=== PATIENT | male | born 1945 | race Caucasian/White ===

== ENCOUNTER 2016-11-28 06:52 | Inpatient (IN) | payer MEDICARE, MEDICAID ==
[~2016-11-28] VITALS: Ht 165.1 cm; Wt 44.3 kg
--- NOTE | ~2016-11-28 | PR ---
[place], [place] PROGRESS NOTE NAME: KATHYA MARTINEZ [facility] #: [id number] UNIT #: [id number] ROOM: 404 DOCTOR: SUDHAKAR TRIMBLE MD,MARGA BIRTHDATE: [birth year] DOS: 12/02/2016 PULMONARY FOLLOWUP SUBJECTIVE: He has been noted n.p.o. past midnight. Bronchoscopy planned to be done today. The patient denies symptoms of chest pain. He has been noted mild cough, but there was no sputum expectoration. Denies any abdominal pain. OBJECTIVE: VITAL SIGNS: Recorded showed normal temperature, respiratory rate of 20, heart rate of 72, blood pressure 117/53, pulse oxygen saturation recorded on room air as 98% saturation. HEENT: Shows no acute change. NECK: Supple. CARDIOVASCULAR: S1, S2 audible. LUNGS: Decreased breaths in the left lung. Remaining lung were clear. ABDOMEN: Soft, nontender. LABORATORY DATA: BMP today: BUN 6, creatinine was normal. Glucose 168. Stool for occult blood was noted as negative. IMPRESSION: 1. The patient with large endobronchial obstruction, suspected in the left upper lobe secondary to possible malignancy of the lung with bilateral pulmonary nodules. 2. Postobstructive pneumonia, which has been treated with the antibiotics as well. 3. Chronic obstructive pulmonary disease. PLAN OF TREATMENT: Proceed with the bronchoscopy as planned. No change in treatment at this time immediate will be needed. Any treatment changes necessary will be ordered after the bronchoscopy. MARGA DE LA FUENTE MD CM:PNTRANS [id number] MARGA TRIMBLE MD 12/02/16 1329 interface
--- NOTE | ~2016-11-28 | PR ---
[place], [place] PROGRESS NOTE NAME: KATHYA MARTINEZ UNIT #: [id number] ROOM: 404 DOCTOR: MARGA RIVERA MD BIRTHDATE: [birth year] DOS: 11/30/2016 SUBJECTIVE: He has been noted much comfortable at this time, chest congestion was noted without any sputum expectoration was given blood transfusion yesterday because of severe anemia. Denies symptoms of acute chest pain. Overall noted improvement in the physical stance in this patient and general weakness as per patient. OBJECTIVE: VITAL SIGNS: Normal temperature, respiratory rate 19, heart rate 69, blood pressure 113/52. The pulse oxygen saturation on room air 99% saturation recorded. HEENT: Showed no new change. NECK: Supple. CARDIOVASCULAR: S1, S2 audible. LUNGS: The patient was noted without any wheezing or crackles. Decreased breath sounds were noted in the left upper lobe. IMPRESSION: 1. Malignancy of the patient suspected with metastatic bilateral pulmonary nodules. The patient with atelectasis, left upper lobe. Overall generalized weakness and fatigue. 2. Anemia. 3. Hypokalemia. Supplementation of potassium has been done by the primary care attending. PLAN OF TREATMENT: No change in the plan of management at this time. Continue current therapy as previously in progress. Proceed with the bronchoscopy that was planned, will be done on Friday. Other supportive plan and management as well. Usual care. Nutrition support. LABORATORY DATA: BMP this morning, glucose 152, BUN and creatinine was normal. Potassium 3.2, mildly decreased. CBC: WBC count 13.4, hemoglobin 9.1, hematocrit 29.1, platelet count 385,000. [place], [place] PROGRESS NOTE NAME: KATHYA MARTINEZ UNIT #: [id number] ROOM: 404 DOCTOR: MARGA RIVERA MD BIRTHDATE: [birth year] MARGA DE LA FUENTE MD CM:PNTRANS [id number] MARGA TRIMBLE MD 12/01/16 0117 interface
--- NOTE | ~2016-11-28 | PR ---
[place], [place] PROGRESS NOTE NAME: KATHYA MARTINEZ UNIT #: [id number] ROOM: 404 DOCTOR: MARGA RIVERA MD BIRTHDATE: [birth year] DOS: 12/03/2016 PULMONARY FOLLOWUP SUBJECTIVE: The patient has been noted without any acute distress at this time. The bronchoscopy completed yesterday, endobronchial biopsy taken of the left upper lobe is a large mass. He has been noted with mild cough without any sputum expectoration. OBJECTIVE: VITAL SIGNS: The temperature yesterday noted as 102.4 degrees Fahrenheit post-bronchoscopy. The respiratory rate 18, heart rate 96, blood pressure 117/58. Pulse oxygen saturation noted on room air 93% saturation. HEENT: No acute change present. NECK: Supple. CARDIOVASCULAR: S1, S2 audible. LUNGS: Noted without any wheezing or crackles, decreased breath sounds noted in the left side of the lung. ABDOMEN: Soft, nontender. LABORATORY DATA: CBC today: WBC count 13.1, hemoglobin 9.3, hematocrit 29.7, platelet count 459,000. The BMP this morning shows BUN normal, creatinine was normal. Electrolytes were normal. Albumin 1.8. ____ culture of the bronchial washing noted normal sha. IMPRESSION: 1. The patient noted with suspected malignancy of bilateral pulmonary nodules with obstruction of the left upper lobe subsegment. 2. The patient with chronic obstructive pulmonary disease and history of chronic nicotine dependence. 3. Protein calorie malnutrition status. 4. Fever post-bronchoscopy, could be seen sometimes. PLAN OF TREATMENT: Discharge the patient on oral antibiotics if noted clinically stable. Outpatient followup will be planned post-discharge for the patient. The results of the bronchial washings and cultures will be monitored. Monitor path report, cytology, and the bronchial washings. [place], [place] PROGRESS NOTE NAME: KATHYA MARTINEZ UNIT #: [id number] ROOM: 404 DOCTOR: MARGA RIVERA MD BIRTHDATE: [birth year] MARGA DE LA FUENTE MD CM:PNTRANS [id number] MARGA TRIMBLE MD 12/03/16 1153 interface
--- NOTE | ~2016-11-28 | PR ---
[place], [place] PROGRESS NOTE NAME: KATHYA MARTINEZ UNIT #: [id number] ROOM: 404 DOCTOR: MARGA RIVERA MD BIRTHDATE: [birth year] DOS: 12/01/2016 SUBJECTIVE: He has been noted comfortable at this time. He continues to shows reduction of the origin ____ fatigue. The patient does have some cough, but there was no sputum expectoration. Denies any symptoms of acute chest pain. OBJECTIVE: VITAL SIGNS: For the patient shows the normal temperature, respiratory rate of the patient recorded as 18, heart rate 73, blood pressures 124/59. The pulse oxygen saturation of the patient noted on room air 96% saturation. HEENT: Examination shows no new change. NECK: Supple. CARDIOVASCULAR: S1, S2 audible. LUNGS: The patient was noted without any crackles. Decreased breath sounds are noted in the left lung. ABDOMEN: Soft, nontender. LABORATORY DATA: CBC today: WBC count 13.4, hemoglobin 9.1, hematocrit 29.1, platelet count 385,000. Blood culture from the 15 of this month shows no bacterial growth. Vancomycin trough level noted as 5.5. IMPRESSION: 1. The patient with left upper lung atelectasis for the patient which has been noted. 2. Endobronchial lesion for the patient bilaterally. Suspected metastatic nodules in the lungs. 3. Generalized fatigability for this patient as well. 4. Postobstructive pneumonia for the patient as well. PLAN OF TREATMENT: Continue the patient's current therapy, plan of management. Bronchoscopy planned to be done in the morning for the patient under fluoroscopy for assessment of current abnormal CT scan of chest finding and the chest x-ray. Other supportive plan of therapy to be continued. Usual care. [place], [place] PROGRESS NOTE NAME: KATHYA MARTINEZ UNIT #: [id number] ROOM: 404 DOCTOR: MARGA RIVERA MD BIRTHDATE: [birth year] MARGA DE LA FUENTE MD CM:PNTRANS 26 MARGA TRIMBLE MD 12/01/16 2226 interface
--- NOTE | ~2016-11-28 | PROC NOTE ---
[place], [place] PROCEDURE NOTE [id number] UN[facility] #: [id number] ROOM: 404 DOCTOR: SUDHAKAR TRIMBLE MD,MARGA BIRTHDATE: [birth year] DOS: 12/02/2016 PREOPERATIVE DIAGNOSIS: Left upper lung atelectasis with suspected endobronchial lesion. POSTOPERATIVE DIAGNOSIS: Large endobronchial lesion noted in the left upper lung, status post endobronchial and transbronchial biopsies. COMPLICATIONS: None. PROCEDURE DESCRIPTION: Informed consent obtained. The patient brought to the OR and placed in supine position. Conscious sedation was administered in the supine position by the Anesthesia Department. After the sedation, the patient's airway introduced into the mouth. Bronchoscope advanced to the endobronchial tree to the airway into laryngeal area. Epiglottis and vocal cords were seen. Vocal noted yellowish in color moving symmetrically with movements. Bronchoscope advanced to the vocal cord and tracheal lumen. Tracheal lumen noted small amount of secretion. All the bronchial tree of right side noted were patent. Left lingula and lower lobe bronchial opening were all noted patent. Large endobronchial obstructive lesions were noted in the left upper lung. The endobronchial and transbronchial biopsies were done with minimal bleeding. A 1:10,000 epinephrine dilutely was also lavaged at that area to prevent any bleeding. Procedure well tolerated in general. Postoperative finding will be discussed later on once the patient recovers from the effects of acute sedation. There were no immediate family members present to discuss the current findings. MARGA DE LA FUENTE MD CM:PROCNOTE:PROCEDURE NOTE 1141 1337 MARGA TRIMBLE MD
--- NOTE | ~2016-11-28 | CON ---
[place], [place] REPORT OF CONSULTATION NAME: KATHYA MARTINEZ [facility] #: [id number] UNIT #: [id number] ROOM: 404 DOCTOR: MARGA RIVERA MD BIRTHDATE: [birth year] DOS: 11/29/2016 PULMONARY CONSULTATION, EVALUATION AND MANAGEMENT REASON FOR CONSULTATION: The consultation was done for the patient for assessment of current abnormal mass lesion and atelectasis of the left lung. HISTORY OF PRESENT ILLNESS: This is a 71-year-old male patient, unknown to me. The patient was noted with symptoms of having increased shortness of breath ongoing for the past few days. The symptoms have been noted to be gradually worsening. He was also noted with edema of the right foot as well. Shortness of breath occurs with [id number] exertion activity with general weakness and fatigue. The patient was also noted with pain in the foot as well. The patient was noted with a cough. There was no sputum expectoration. Denies wheezing or chest pain. He has been assessed in the Emergency Room with a chest x-ray taken at that time, which has been noted with left upper lobe atelectasis. CT scan of the chest for this patient was done for further assessment, which was noted abnormal as well. The patient has been living in [place] previously and recently moved back to [place]. The patient lives with his daughter. REVIEW OF SYSTEMS: CONSTITUTIONAL: The patient stated he has been noted with weight loss in the past, but not noted any recent weight loss. Denies symptoms of fever or chills. Noted generalized weakness and malaise. EYES: Denies any burning, redness, or tenderness. EARS, NOSE AND THROAT: Denies sore throat, hoarseness, otalgia, postnasal drainage or epistaxis. CARDIOVASCULAR: Denies anginal pain, edema or pain of the lower extremities. GASTROINTESTINAL: Denies dysphagia, nausea, vomiting, diarrhea, abdominal pain, hematemesis, melena, or hematochezia. SKIN: Denies any lesions or rashes. MUSCULOSKELETAL: Denies any acute joint pain at this time except foot pain. CENTRAL NERVOUS SYSTEM: No dizziness, headache, diplopia, syncopal episodes or seizures. Remaining systems were reviewed with the patient, they were noted all negative. PAST MEDICAL HISTORY: Known with history of: 1. Type 2 diabetes mellitus. 2. Essential hypertension. 3. Hyperlipidemia. 4. Peripheral vascular disease. PAST SURGICAL HISTORY: Reported: 1. Amputation of the left foot toe. 2. Femoral-popliteal bypass grafting surgery for the peripheral vascular disease management. SOCIAL HISTORY: The patient is and has 2 children. Denies any history of alcohol or any illicit drug use. Smoking noted as 1 pack of cigarettes per [place], [place] REPORT OF CONSULTATION [id number] #: [id number] ROOM: [facility] DOCTOR: MARGA RIVERA MD BIRTHDATE: [birth year] day, started as a teenager with active tobacco use noted until hospitalization. FAMILY HISTORY: Father from an accident. History about the mom was unknown. MEDICATIONS: The home medications noted as use of ProAir HFA inhaler p.r.n. use, aspirin, Lipitor, Plavix, and niacin. DRUG ALLERGIES: No known drug allergies. PHYSICAL EXAMINATION: GENERAL: This is a 71-year-old male patient who has been currently noted emaciated with cachexia. Height of the patient noted as 5 feet 5 inches, weight of 44 kg, BMI 16.2. VITAL SIGNS: Normal temperature, respiratory rate noted as 16-19, heart rate of 79-75, blood pressure 113/55 to 103/68. HEENT: Examination shows head was atraumatic. Eyes: No icterus. Loss of muscle mastication. Oral mucosa was dry. NECK: Supple. CARDIOVASCULAR: S1, S2 audible. LUNGS: The patient was noted with decreased breath sounds in the left chest auscultation. There is no wheezing or crackles. ABDOMEN: Soft, flat, nontender. EXTREMITIES: No acute edema. CENTRAL NERVOUS SYSTEM: Cranial nerves 2-12 intact. No focal deficits. MUSCULOSKELETAL: No deformities. SKIN: No lesions or rashes. LABORATORY DATA: The patient's CBC that was done yesterday on admission, WBC count 13.0, hemoglobin 8.3, hematocrit 27.5, platelet count of 546,000. CBC of the patient that was done this morning shows hemoglobin 6, hematocrit 20.0, WBC count 12.6, platelet count 448,000. BMP of the patient that was done yesterday, 11/28/2016, shows glucose 138, BUN and creatinine was normal, calcium was normal, other electrolytes normal. ESR was noted at 130 yesterday. Troponins yesterday and this morning were noted as normal. Lactic acid noted as 2.6 and 2.8. CMP of the patient this morning, glucose 155, BUN and creatinine normal, potassium 3.1. Albumin of 1.9. AST and ALT were normal. Total protein of 6.1. Chest x-ray of the patient shows evidence of atelectasis, left upper lung with tracheal deviation noted to the left. CT scan of the chest that was done on 11/28/2016 with contrast that I personally reviewed with the patient shows evidence of significant lymphadenopathy noted in the precarinal area as well as the mediastinum bilaterally. Right infrahilar lymphadenopathy was also noted. The left pulmonary artery was encased with current mass lesion which is noted necrosis in that, measured as 5.1 x 4.2 x 4.1 cm in size. The patient with atelectasis of the left upper lobe. Additional multiple nodules were noted in both lungs, with different sizes, with the larger index nodule noted at 2 x 2.2 cm in size in the superior aspect of the left lower lobe. Severe centrilobular emphysema changes also noted. A low-density lesion in the left hepatic lobe was also described. [place], [place] REPORT OF CONSULTATION NAME: [facility] [id number] UNIT #: [id number] ROOM: 404 DOCTOR: SANA RIVERA MDM BIRTHDATE: [birth year] IMPRESSION: 1. The patient who has been currently admitted to the hospital noted general weakness and fatigue, noted with incidental finding of obstructive lesion, causing complete atelectasis of the left upper lung with metastatic lesion highly suspicious for primary lung cancer, metastasis to both lungs and lymph nodes would be considered very likely. 2. Low body mass index with abnormal weight loss related due to underlying malignancy would be considered. 3. Anemia has been noted, the etiology remains unclear. 4. Chronic obstructive pulmonary disease with centrilobular emphysema was also noted. 5. Possibility of postobstructive pneumonia would be considered with current abnormal findings of atelectasis of the left upper lobe ____ as well with lactic acidosis and sepsis consideration. 6. History of chronic nicotine dependence for many years. PLAN OF TREATMENT: Bronchoscopy ____ to assess the patient and planned to be done on Friday morning with fluoroscopy. Continuation of the current antibiotics. Monitor respiratory status closely. Assess the nutritional status closely and nutrition support to be provided. Order prealbumin levels as well during the current hospitalization. Use of nicotine replacement patches to overcome the nicotine withdrawal for this patient as well. Further treatment changes will be done for the patient based on the progression of the illness. The current ongoing problem was discussed with the patient in detail. He will be started on Dulera inhaler as well for the long-term management of COPD component. Thanks for allowing me to participate in the care of this patient. MARGA DE LA FUENTE MD CM:CONSTR:REPORT OF CONSULTATION 1218 11/29/16 1455 interface
--- NOTE | ~2016-11-28 | CON ---
[place], [place] REPORT OF CONSULTATION NAME: [facility]Z [id number] UNIT #: [id number] ROOM: 404 DOCTOR: HAYDEE TOMAS MDSALEMNIKOLAY BIRTHDATE: [birth year] DOS: HISTORY OF PRESENT ILLNESS: This is a 71-year-old patient who presented with chief complaint of cellulitis of the right foot and patient was admitted and panel of blood work was done and initial blood work where he was found to have microcytic anemia with H and H of 8 and 27, white blood cell of 13, basic metabolic panel addressed, electrolyte balance, C-reactive protein greater than 10. Right foot was x-rayed, moderate deformities, no acute abnormality was noted. Lactic acid was 2.6. Troponin was normal. Chest x-ray shows complete collapse of the left upper lobe with shift of mediastinal structures toward the left. CT scan was recommended. CT scan of the chest therefore yielded centrally obstructing, centrally necrotic mass occluding the left upper lobe bronchus and concerns for Pulmonary Medicine and therefore, he was scheduled for bronchoscopy and biopsy by Dr. Serrano tomorrow to rule out carcinoma. His blood cultures were negative. Latest H and H was 9 and 27. This is status post transfusion of 2 units packed cells. PAST MEDICAL HISTORY: Diabetes, hyperlipidemia, hypertension, peripheral vascular disease. PAST SURGICAL HISTORY: Amputation of left foot toe fem-pop. SOCIAL HISTORY: Smoker, nonalcohol consumer. FAMILY HISTORY: Noncontributory. ALLERGIES: To no known medications. MEDICATIONS: Medication list as identified, ProAir 9, Nyasin, Plavix, Lipitor, aspirin, all has been recognized. REVIEW OF SYSTEMS: HEENT: Denies double vision, blurred vision. RESPIRATORY: Admits to shortness of breath. CARDIOVASCULAR: Denies chest pain. DIGESTIVE SYSTEM: No hematemesis, no hematochezia. Last colonoscopy 10 years ago. PHYSICAL EXAMINATION: GENERAL: Nondistressed patient. HEENT: Head normocephalic, nontraumatic. Mouth and buccal mucosa benign. NECK: Supple, no thyromegaly, no cervical lymphadenopathy. CHEST: Symmetric anatomy, equal expansion. Decreased air entry, COPD pattern is recognized. HEART: Normal sinus rhythm, no gallop, no murmur. ABDOMEN: Soft. No hepato-organomegaly, no pulsatile mass. EXTREMITIES: No cyanosis, no pedal edema. NEUROLOGIC: Alert, oriented to time, place, person. Cellulitis of right foot has resolved. [place], [place] REPORT OF CONSULTATION NAME: KATHYA MARTINEZ UNIT #: [id number] ROOM: [facility] DOCTOR: THOM JOHNSON,LUIS F BIRTHDATE: [birth year] IMPRESSION: Microcytic anemia, necrotic mass with medistinal shift in the lungs for bronchoscopy evaluation tomorrow, ruling out carcinoma as etiology of anemia. OTHER ADJUNCTIVE DIAGNOSES: Hyperlipidemia, hypertension, diabetes mellitus, workup in progress. LUIS F TOMAS MD CM:CONSTR:REPORT OF CONSULTATION 1057 12/01/16 1407 interface
[2016-11-28 07:05] VITALS: BP 113/65
[2016-11-28] MEDS ORDERED: NIASPAN1000 MG PO (07:07)
[2016-11-28] MEDS ORDERED: LIPITOR40 MG PO (07:08)
[2016-11-28] MEDS ORDERED: ASPIRIN ADULT L81 M2 PO (07:08)
[2016-11-28] MEDS ORDERED: PROAIR HFA8.5 GM INH (07:08)
[2016-11-28] MEDS ORDERED: PLAVIX75 M1 PO (07:08)
[2016-11-28 07:45] VITALS: BP 112/70
[2016-11-28 07:46] LABS: BASO # 0.1 10*3/uL (0.0-0.1); BASO % 0.9 % (0.0-1.0); EOS # 0.2 10*3/uL (0.0-0.4); EOS % 1.4 % (1.0-4.0); HEMATOCRIT 27.5 % (42.0-52.0); HEMOGLOBIN 8.3 g/dl (14.0-18.0); IG # 0.1 10*3/uL (0.0-0.1); LYMPH # 1.8 10*3/uL (1.3-4.4); MEAN CELL VOLUME 72.9 fl (80.0-94.0); MEAN CORPUSCULAR HGB CONC 30.2 g/dl (33.0-37.0); MEAN PLATELET VOLUME 8.8 fl (9.6-12.3); MONO # 1.5 10*3/uL (0.1-1.0); MONO % 11.4 % (3.0-9.0); NEUT # 9.3 10*3/uL (2.3-7.9); NEUT % 71.7 % (47.0-73.0); PLATELET COUNT AUTOMATED 546 10*3/uL (130-400); RED BLOOD COUNT 3.77 10*6/uL (4.50-5.90); RED CELL DISTRI WIDTH 15.9 % (0-14.5)
[2016-11-28 07:57] LABS: BUN 13 mg/dl (7-24); CARBON DIOXIDE 26 mmol/L (21-32); CHLORIDE 102 mmol/L (98-107); EST GLOM FILT AFRICAN AMERICAN > 60 ml/min; GLUCOSE 138 mg/dL (65-99); POTASSIUM 3.9 mmol/L (3.5-5.1); SODIUM 137 mmol/L (136-145)
[2016-11-28 09:10] VITALS: BP 103/68
[2016-11-28 12:00] VITALS: BP 104/53
[2016-11-28 15:53] LABS: LA>2 REFLEX 2 HR DRAW NOW
[2016-11-28 16:00] VITALS: BP 102/53
[2016-11-28 16:14] LABS: LA>2 RFLX FOLLOW UP AT 2 HRS 2.8 mmol/L (0.4-2.0)
[2016-11-28 18:06] LABS: LA>2 REFLEX 4 HR DRAW NOW
[2016-11-28 20:00] VITALS: BP 103/52
[2016-11-29] VITALS (11 sets, daily range): BP systolic 92–118; BP diastolic 42–75
[2016-11-29 06:52] LABS: BASO % 0.3 % (0.0-1.0); EOS # 0.1 10*3/uL (0.0-0.4); EOS % 0.6 % (1.0-4.0); IG # 0.1 10*3/uL (0.0-0.1); LYMPH # 1.1 10*3/uL (1.3-4.4); LYMPH % 8.9 % (27.0-41.0); MEAN CELL VOLUME 73.5 fl (80.0-94.0); MEAN CORPUSCULAR HGB 22.1 pg (27.0-31.0); MEAN PLATELET VOLUME 8.8 fl (9.6-12.3); MONO # 1.4 10*3/uL (0.1-1.0); MONO % 11.1 % (3.0-9.0); NEUT # 9.8 10*3/uL (2.3-7.9); NEUT % 78.4 % (47.0-73.0); PLATELET COUNT AUTOMATED 448 10*3/uL (130-400); RED BLOOD COUNT 2.72 10*6/uL (4.50-5.90); WHITE BLOOD COUNT 12.6 10*3/uL (4.8-10.8)
[2016-11-29 07:08] LABS: ALBUMIN 1.9 gm/dl (3.1-4.5); ALKALINE PHOSPHATASE 75 U/L (45-117); BILIRUBIN, TOTAL 0.2 mg/dl (0.2-1.0); BUN 8 mg/dl (7-24); CARBON DIOXIDE 22 mmol/L (21-32); CHLORIDE 107 mmol/L (98-107); CHOLESTEROL 74 mg/dL (<200); EST GLOM FILT AFRICAN AMERICAN > 60 ml/min; GLUCOSE 155 mg/dL (65-99); HDL CHOLESTEROL 34 mg/dl (40-60); LDL CHOLESTEROL 31 mg/dL (9-159); MAGNESIUM 1.6 mg/dL (1.5-2.1); PHOSPHOROUS 2.7 mg/dL (2.5-4.9); POTASSIUM 3.1 mmol/L (3.5-5.1); SGOT/AST 11 IU/L (3-35); SGPT/ALT 8 U/L (12-78); SODIUM 142 mmol/L (136-145); TOTAL PROTEIN 6.1 gm/dL (6.4-8.2); TRIGLYCERIDES 44 mg/dl (<150); VLDL CHOLESTEROL 9 mg/dL (6-40)
[2016-11-29 07:16] LABS: FOLIC ACID 8.06 ng/mL (>5.38); VITAMIN D, 25-HYDROXY 29.7 ng/mL (30-100)
[2016-11-30] VITALS: BP 113/52
[2016-11-30 06:33] LABS: MEAN CELL VOLUME 76.2 fl (80.0-94.0); MEAN CORPUSCULAR HGB 23.8 pg (27.0-31.0); MEAN CORPUSCULAR HGB CONC 31.3 g/dl (33.0-37.0); MEAN PLATELET VOLUME 8.6 fl (9.6-12.3); PLATELET COUNT AUTOMATED 385 10*3/uL (130-400); RED BLOOD COUNT 3.82 10*6/uL (4.50-5.90); RED CELL DISTRI WIDTH 17.2 % (0-14.5); WHITE BLOOD COUNT 13.4 10*3/uL (4.8-10.8)
[2016-11-30 06:35] LABS: HEMATOCRIT 29.1 % (42.0-52.0); HEMOGLOBIN 9.1 g/dl (14.0-18.0)
[2016-11-30 06:44] LABS: BUN 5 mg/dl (7-24); CARBON DIOXIDE 23 mmol/L (21-32); CHLORIDE 106 mmol/L (98-107); EST GLOM FILT AFRICAN AMERICAN > 60 ml/min; GLUCOSE 152 mg/dL (65-99); POTASSIUM 3.2 mmol/L (3.5-5.1); SODIUM 139 mmol/L (136-145)
[2016-11-30 06:49] LABS: PREALBUMIN 5 mg/dl (20-40)
[2016-11-30 06:57] LABS: BASOPHIL # 0.1 10*3/uL (0-0.1); BASOPHILS 1 % (0-1); LYMPHOCYTE # 1.5 10*3/uL (1.3-4.4); MONOCYTE # 0.5 10*3/uL (0.1-1.0); MYELOCYTES 1 % (0-0); NEUTROPHIL # 11.1 10*3/uL (2.3-7.9); NEUTROPHILS 83 % (47-73); PLATELET SUFFICIENCY NORMAL (NORMAL); POLYCHROMASIA SLIGHT; SCHISTOCYTES FEW; TOTAL CELLS COUNTED 100 #CELLS
[2016-11-30 08:00] VITALS: BP 104/48
[2016-11-30 12:00] VITALS: BP 110/50; BP 113/52
[2016-11-30 16:00] VITALS: BP 113/52
[2016-11-30 20:00] VITALS: BP 130/58
[2016-12-01] VITALS: BP 115/54
[2016-12-01 05:51] LABS: HEMATOCRIT 27.4 % (42.0-52.0); MEAN CELL VOLUME 74.9 fl (80.0-94.0); MEAN CORPUSCULAR HGB 24.6 pg (27.0-31.0); MEAN CORPUSCULAR HGB CONC 32.8 g/dl (33.0-37.0); MEAN PLATELET VOLUME 8.8 fl (9.6-12.3); PLATELET COUNT AUTOMATED 412 10*3/uL (130-400); RED BLOOD COUNT 3.66 10*6/uL (4.50-5.90); RED CELL DISTRI WIDTH 17.5 % (0-14.5); WHITE BLOOD COUNT 12.5 10*3/uL (4.8-10.8)
[2016-12-01 06:26] LABS: EOSINOPHIL # 0.4 10*3/uL (0-0.4); EOSINOPHILS 3 % (1-4); LYMPHOCYTE # 1.3 10*3/uL (1.3-4.4); MONOCYTE # 1.8 10*3/uL (0.1-1.0); MYELOCYTES 1 % (0-0); NEUTROPHILS 72 % (47-73); PLATELET SUFFICIENCY HIGH (NORMAL); SCHISTOCYTES FEW; TOTAL CELLS COUNTED 100 #CELLS
[2016-12-01 06:27] LABS: ACANTHOCYTES FEW; HYPOCHROMIA SLIGHT
[2016-12-01 08:00] VITALS: BP 124/59
[2016-12-01 12:00] VITALS: BP 112/55
[2016-12-01 16:00] VITALS: BP 113/54
[2016-12-01 20:00] VITALS: BP 134/70
[2016-12-02] VITALS (9 sets, daily range): BP systolic 100–132; BP diastolic 40–84
[2016-12-02 06:45] LABS: ALBUMIN 1.9 gm/dl (3.1-4.5); BUN 6 mg/dl (7-24); CARBON DIOXIDE 28 mmol/L (21-32); CHLORIDE 102 mmol/L (98-107); GLUCOSE 148 mg/dL (65-99); POTASSIUM 3.4 mmol/L (3.5-5.1); SODIUM 139 mmol/L (136-145)
[2016-12-02 06:48] LABS: ALKALINE PHOSPHATASE 81 U/L (45-117); BILIRUBIN, TOTAL 0.3 mg/dl (0.2-1.0); EST GLOM FILT AFRICAN AMERICAN > 60 ml/min; SGOT/AST 16 IU/L (3-35); SGPT/ALT 13 U/L (12-78); TOTAL PROTEIN 6.6 gm/dL (6.4-8.2)
[2016-12-03] VITALS: BP 102/51
[2016-12-03 05:32] LABS: ALBUMIN 1.8 gm/dl (3.1-4.5); ALKALINE PHOSPHATASE 81 U/L (45-117); BILIRUBIN, TOTAL 0.3 mg/dl (0.2-1.0); BUN 7 mg/dl (7-24); CARBON DIOXIDE 26 mmol/L (21-32); CHLORIDE 104 mmol/L (98-107); EST GLOM FILT AFRICAN AMERICAN > 60 ml/min; GLUCOSE 128 mg/dL (65-99); POTASSIUM 3.7 mmol/L (3.5-5.1); SGOT/AST 18 IU/L (3-35); SGPT/ALT 17 U/L (12-78); SODIUM 141 mmol/L (136-145); TOTAL PROTEIN 6.3 gm/dL (6.4-8.2); VANCOMYCIN TROUGH 12.6 ug/mL (10-20)
[2016-12-03 05:40] LABS: HEMATOCRIT 29.7 % (42.0-52.0); HEMOGLOBIN 9.3 g/dl (14.0-18.0); MEAN CELL VOLUME 75.8 fl (80.0-94.0); MEAN CORPUSCULAR HGB 23.7 pg (27.0-31.0); MEAN CORPUSCULAR HGB CONC 31.3 g/dl (33.0-37.0); MEAN PLATELET VOLUME 8.6 fl (9.6-12.3); PLATELET COUNT AUTOMATED 459 10*3/uL (130-400); RED BLOOD COUNT 3.92 10*6/uL (4.50-5.90); RED CELL DISTRI WIDTH 18.6 % (0-14.5); WHITE BLOOD COUNT 13.1 10*3/uL (4.8-10.8)
[2016-12-03 06:22] LABS: EOSINOPHIL # 0.8 10*3/uL (0-0.4); EOSINOPHILS 6 % (1-4); HYPOCHROMIA SLIGHT; LYMPHOCYTE # 0.9 10*3/uL (1.3-4.4); MICROCYTOSIS SLIGHT; MONOCYTE # 1.2 10*3/uL (0.1-1.0); MYELOCYTES 1 % (0-0); NEUTROPHIL # 10.1 10*3/uL (2.3-7.9); NEUTROPHILS 77 % (47-73); PLATELET SUFFICIENCY HIGH (NORMAL); POLYCHROMASIA SLIGHT; ROULEAUX SLIGHT; TOTAL CELLS COUNTED 100 #CELLS
[2016-12-03 08:00] VITALS: BP 117/58
[2016-12-03] MEDS ORDERED: LEVAQUIN750 M1 PO (10:26)
[2016-12-03] MEDS ORDERED: D-1000 185 MG-11 TAB PO (10:26)
[2016-12-03] MEDS ORDERED: DOXYCYCLINE100 MG PO (10:41)
[2016-12-03 14:09] LABS: ACID FAST SPEC PROCESSING Concentration (.)
== END 2016-12-03 11:46 | disposition home or self-care (01) | DRG 853 ==
LOC: ED 06:52 → 4E 08:28 → EDHOLD 08:28 → 4E 08:38
PROVIDERS: Emergency Medicine; Family Medicine; Hospitalist; Internal Medicine; Internal Medicine Critical Care Medicine
PROC: 0BBG8ZX Excision of Left Upper Lung Lobe, Via Natural or Artificial Opening Endoscopic, Diagnostic (ICD-10-PCS; principal; 2016-12-02)
PROC: 30233N1 Transfusion of Nonautologous Red Blood Cells into Peripheral Vein, Percutaneous Approach (ICD-10-PCS; principal; 2016-12-02)
DX: A41.9 Sepsis, unspecified organism (principal); J18.9 Pneumonia, unspecified organism; E43 Unspecified severe protein-calorie malnutrition; J44.0 Chronic obstructive pulmonary disease with (acute) lower respiratory infection; E11.65 Type 2 diabetes mellitus with hyperglycemia; E11.51 Type 2 diabetes mellitus with diabetic peripheral angiopathy without gangrene; E11.628 Type 2 diabetes mellitus with other skin complications; L03.115 Cellulitis of right lower limb; D50.9 Iron deficiency anemia, unspecified; F17.200 Nicotine dependence, unspecified, uncomplicated; Z68.1 Body mass index [BMI] 19.9 or less, adult; J98.11 Atelectasis; D47.3 Essential (hemorrhagic) thrombocythemia; I10 Essential (primary) hypertension; R79.82 Elevated C-reactive protein (CRP); E78.5 Hyperlipidemia, unspecified; Z71.6 Tobacco abuse counseling; E87.6 Hypokalemia; Z89.412 Acquired absence of left great toe; Z79.82 Long term (current) use of aspirin; Z79.899 Other long term (current) drug therapy; J43.9 Emphysema, unspecified; Z53.20 Procedure and treatment not carried out because of patient's decision for unspecified reasons

== ENCOUNTER → 2016-12-26 | Outpatient (CLI) | payer MEDICARE, MEDICAID ==
[~2016-12-26] MED LIST: ASPIRIN ADULT L81 M2 PO; D-1000 185 MG-11 TAB PO; DOXYCYCLINE100 MG PO; LEVAQUIN750 M1 PO; LIPITOR40 MG PO; NIASPAN1000 MG PO; PLAVIX75 M1 PO; PROAIR HFA8.5 GM INH
== END | disposition home or self-care (01) ==
LOC: CT 09:00
DX: C34.12 Malignant neoplasm of upper lobe, left bronchus or lung (principal); J43.9 Emphysema, unspecified; K76.89 Other specified diseases of liver